=== PATIENT | male | born 1990 | race Caucasian/White ===

== ENCOUNTER 2023-06-22 09:02 | Outpatient (CLI) | payer MEDICAID, SELFPAY | END 2023-06-22 09:03 | disposition home or self-care (01) | PROVIDERS: PCP Physician Assistant Medical; Visit Provider Physician Assistant Medical | DX: F10.20 Alcohol dependence, uncomplicated (principal); F41.9 Anxiety disorder, unspecified; G89.29 Other chronic pain; Z72.0 Tobacco use | CPT/HCPCS: 80053; 80306; 82306; 82607; 82746; 84425; 84443; 86703; 86803 ==

== ENCOUNTER 2023-07-24 08:45 | Outpatient (CLI) | payer MEDICAID, SELFPAY | END 2023-07-24 08:46 | disposition home or self-care (01) | LOC: LKVREF 08:47 | PROVIDERS: PCP Physician Assistant Medical; Visit Provider Physician Assistant Medical | DX: D64.9 Anemia, unspecified (principal) | CPT/HCPCS: 83540; 83550 ==

== ENCOUNTER 2023-12-27 15:00 | Outpatient (CLI) | payer MEDICAID, SELFPAY | END 2023-12-27 15:01 | disposition home or self-care (01) | PROVIDERS: PCP Physician Assistant Medical; Visit Provider Physician Assistant Medical | DX: E83.52 Hypercalcemia (principal) | CPT/HCPCS: 80053; 82306 ==